=== PATIENT | male | born 1990 | race Two or more races ===

== ENCOUNTER → 2017-06-17 | Outpatient (CLI) | payer OTHER ==
[~2017-06-17] VITALS: Ht 172.7 cm; Wt 102.1 kg
== END | disposition home or self-care (01) ==
LOC: Rad HDHVI 13:20
PROVIDERS: ATTEND Internal Medicine Cardiovascular Disease
DX: R07.9 Chest pain, unspecified (principal); R00.2 Palpitations; Z82.49 Family history of ischemic heart disease and other diseases of the circulatory system
CPT/HCPCS: 78452; 93017; 93306; 96374; A9500

== ENCOUNTER 2017-09-28 02:27 | Emergency (ER) | payer SELFPAY ==
[~2017-09-28] VITALS: Ht 172.7 cm; Wt 108.1 kg
[2017-09-28 02:33] VITALS: BP 127/89
[2017-09-28] MEDS ORDERED: clonazePAM 0.5 MG TAB PO ONE ×2 (02:45→03:00)
[2017-09-28 03:11] LABS: Basophils # (auto) 0.1 uL; Basophils % (auto) 0.5 % (0.0-2.0); Eosinophils # (auto) 0.2 uL; Eosinophils % (auto) 1.9 % (0.0-7.0); Hematocrit 47.4 % (41.0-53.0); Hemoglobin 16.8 g/dL (13.5-17.5); Lymphocytes # (auto) 3.5 uL; Lymphocytes % (auto) 35.3 % (10.0-50.0); Mean Corpuscular Hemoglobin 30.3 pg (28.0-32.0); Mean Corpuscular Hgb Conc. 35.4 g/dL (32.0-36.0); Mean Corpuscular Volume 85.7 fL (80.0-100.0); Mean Platelet Volume 7.3 fL (6.9-10.8); Monocytes # (auto) 0.9 uL; Monocytes % (auto) 8.8 % (0.0-12.0); Neutrophils # (auto) 5.4 uL; Neutrophils % (auto) 53.5 % (37.0-80.0); Nucleated Red Blood Cells % 0.2 %; Platelet Count (auto) 242 10^3/uL (140-450); Red Cell Distribution Width 12.7 % (11.8-14.3)
[2017-09-28 03:24] LABS: BUN/Creatinine Ratio 22.4; Potassium 3.3 mmol/L (3.5-5.1)
[2017-09-28 03:27] LABS: Bilirubin, Total 0.5 mg/dL (0.2-1.0)
== END 2017-09-28 04:00 | disposition left against medical advice (07) ==
LOC: ER 02:28
DX: R07.89 Other chest pain (principal); F41.9 Anxiety disorder, unspecified; Z53.21 Procedure and treatment not carried out due to patient leaving prior to being seen by health care provider
CPT/HCPCS: 36415; 80053; 85025; 93005